=== PATIENT | female | born 2000 | race Caucasian/White ===

== ENCOUNTER 2022-05-04 16:09 | Emergency (ER) | payer OTHER, SELFPAY ==
--- NOTE | 2022-05-04 16:35 | PC.NURSE ---
assessed pt in triage. vss, no room availability at this time. pt aware and will bring pt to room as soon one is open.
[2022-05-04 17:21] VITALS: BP 130/65; PULSE 124; RESP 20; TEMP 36.9; O2SAT 98; BMI 32.5
--- NOTE | 2022-05-04 17:26 | [facility].EDGENADL ---
Discharge Plan Disposition Patient Disposition: Home, Self-Care Condition: Good Prescriptions Prescriptions: New ondansetron HCl 4 mg tablet 4 mg PO Q6H PRN (Reason: nausea and vomiting) Qty: 10 0RF Referrals Follow up/Referrals: Provider,Referral, [Primary Care Provider] - See instructions Activity Restrictions/Add. Instructions Additional Instructions/Restrictions: Follow-up with your primary care provider within 72 hours to establish care for this visit to the emergency department and ensure improvement of symptoms. If you do not get any better, are unable to tolerate food or drink by mouth, continue to get worse, or any other concerning signs, return to the ED for further evaluation. Clinical Impressions Clinical Impression: Gastroenteritis Instructions Patient Instructions: DI for Diarrhea and Traveler's Diarrhea -- Adult, DI for Diarrhea and Traveler's Diarrhea -- Child, DI for Nausea -- Adult, DI for Nausea -- Child Discharge ED Provider: Toy Jason General Adult HPI General Chief complaint: Nausea/Vomiting/Diarrhea Stated complaint: vomiting, diarrhea, STILES, adm pain Time Seen by Provider: 05/04/22 17:16 Mode of Arrival: Ambulatory Source of Information: Patient Limitations: No Limitations Description of Symptoms (Recalled from ER Triage Doc. by RN): c/o v/d starting around 3:40am, t/o the day STILES, middle abdomen pain and blood in her vomit that pt states looks like a watered down blood History of Present Illness HPI narrative: This is an otherwise healthy 22-year-old female presenting with vomiting and diarrhea. Patient states that she has been vomiting persistently without ability to tolerate any p.o. intake for approximately 12 hours. Vomiting has more recently been associated with dark red flecks of blood. Denies bilious vomiting. She has also had diarrhea that is nonbloody and watery. She has associated epigastric abdominal pain that is 8 out of 10 at worst, does not radiate, not associated with dysuria, hematuria. Currently on menstrual period. Denies chest pain, shortness of breath, back pain, neurologic deficits, or any other concerning history Related Data Previous Rx's Medication Instructions Recorded ondansetron HCl 4 mg tablet 4 mg PO Q6H PRN nausea and 05/04/22 vomiting #10 tabs Allergies Allergy/AdvReac Type Severity Reaction Status Date / Time No Known Allergies Allergy Verified 05/04/22 17:42 PFSH [facility] Disclaimer: The information contained in this section may have been updated after the patient was seen, as this information can be updated by other users. Social History Smoking Status: Current every day smoker alcohol intake: never current occupational status: employed Travel in the last 8 weeks: None ROS Obtained: Yes All systems reviewed & no additional complaints except as documented Physical Exam General General appearance: alert and in no apparent distress Head Head exam: atraumatic, normocephalic and normal inspection Eye Eye exam: Present normal appearance, PERRL and EOMI ENT ENT exam: Present normal exam, normal oropharynx, mucous membranes moist, TM's normal bilaterally and normal external ear exam Neck Neck exam: Present normal inspection, full ROM and trachea midline; Absent meningismus or lymphadenopathy Chest Chest inspection: Present normal inspection and symmetric chest wall rise; Absent tenderness Respiratory Respiratory exam: Present normal lung sounds bilaterally; Absent respiratory distress Cardiovascular Cardiovascular exam: Present regular rate and normal rhythm; Absent JVD Abdominal Exam Abdominal exam: Present soft, tenderness and normal bowel sounds; Absent distention, guarding, rebound, rigidity, Peter's sign, Rovsing's sign or tenderness at McBurney's Point Abdominal tenderness: Present epigastrium Extremities Exam Extremities exam: Present normal inspection, full ROM and normal capillary refill; Absent calf tenderness
--- NOTE | 2022-05-04 17:27 | XR_ITS ---
PROCEDURE INFORMATION: Exam: XR Chest Exam date and time: 05/04/2022 7:03 PM Age: 22 years old Clinical indication: Other: Hematemesis, rule out eso perf. TECHNIQUE: Imaging protocol: Radiologic exam of the chest. Views: 1 view. Portable AP upright exam 7:06 p.m. COMPARISON: No relevant prior studies available. FINDINGS: Lungs: Minimal subsegmental atelectasis or minimal airspace disease at the left lung base. Right lung is unremarkable. Pulmonary vessels do not appear congested. Pleural spaces: Unremarkable. No significant pleural effusion. No pneumothorax. Heart/Mediastinum: The cardiac silhouette is normal. No evidence of pneumomediastinum to confirm an esophageal perforation. Bones/joints: Mild thoracic dextroscoliosis.There is no evidence of acute fracture. IMPRESSION: 1. There are no findings of pneumomediastinum, to suggest esophageal perforation. 2. Minimal subsegmental atelectasis or airspace disease/pneumonia at the left lung base. No definite consolidation. 3. Additional nonemergency and chronic findings as above.
[2022-05-04 17:46] LABS: Coronavirus 19, PCR Not Detected (NotDetected)
[2022-05-04 17:47] LABS: Influenza A, PCR Not Detected (NotDetected); Influenza B, PCR Not Detected (NotDetected)
[2022-05-04 17:58] LABS: Basophils # 0.1 K/mm3 (0-0.2); Basophils % 0.3 % (0.1-2.0); Eosinophils # 0.1 K/mm3 (0.0-0.4); Eosinophils % 0.6 % (0.1-12.0); Hematocrit 45.6 % (37.0-47.0); Hemoglobin 14.9 g/dL (12.2-16.2); Lymphocytes # 0.3 K/mm3 (0.7-4.5); Lymphocytes % 1.7 % (10-50); Mean Corpuscular HGB Conc 32.7 g/dL (31.8-35.4); Mean Corpuscular Hemoglobin 28.7 pg (27.0-31.2); Mean Corpuscular Volume 87.8 fl (81-99); Mean Platelet Volume 7.9 fl (7.4-10.4); Monocytes # 0.3 K/mm3 (0.1-1.0); Neutrophils # 15.1 K/mm3 (1.8-7.8); Neutrophils % 95.4 % (37.0-80.0); Platelet Count 528 K/mm3 (142-424); Red Blood Count 5.19 M/mm3 (4.20-5.40); White Blood Count 15.8 K/mm3 (4.8-10.8)
[2022-05-04 18:00] LABS: MANUAL DIFFERENTIAL MANUAL DIFFERENTIAL (MANUAL DIFF)
[2022-05-04 18:26] LABS: Lymphocytes % 6 % (10-50); Monocytes % 1 % (2-9); Neutrophils % 93 % (42-76); RBC Morphology Normal; Total Cells Counted 100
[2022-05-04 18:27] LABS: Platelet Estimate Moderate Increase
[2022-05-04 18:28] LABS: Alanine Aminotransferase 35 U/L (12-78); Albumin Level 5.3 g/dl (3.5-5.0); Albumin/Globulin Ratio 1.2 (1.1-1.8); Alkaline Phosphatase 106 U/L (38-126); Anion Gap 21.4 mEq/L (5-15); Aspartate Amino Transferase 55 U/L (14-36); Bilirubin,Total 1.5 mg/dl (0.2-1.3); Blood Urea Nitrogen 21 mg/dl (7-17); Calcium 9.8 mg/dl (8.4-10.2); Carbon Dioxide 21 mmol/L (22.0-30.0); Chloride 103 mmol/L (98-107); Creatinine Clearance Estimated 197 mL/min (50-200); Estimated Glomerular Filt Rate 123 ml/min (>60); GFR (African American) 149 ML/MIN (>60); Globulin 4.3 g/dL (1.3-3.2); Glucose 127 mg/dl (74-100); Lipase 49 U/L (23-300); Potassium 5.4 mmoL/L (3.5-5.1); Sodium 140 mmol/L (136-145); Total Protein,Serum 9.6 g/dl (6.3-8.2)
[2022-05-04 18:30] VITALS: BP 102/64; PULSE 104; RESP 18; O2SAT 98
[2022-05-04 18:50] LABS: HCG,Quantitative < 2 mIU/ml (0-5.42)
[2022-05-04 19:33] LABS: Microscopic, Urine URINE MICROSCOPIC (MICROSCOPIC)
[2022-05-04 20:11] VITALS: BP 118/79; PULSE 119; RESP 18; TEMP 36.9; O2SAT 98
[2022-05-04 20:17] LABS: Appearance,Urine CLOUDY (Clear); Bilirubin,Urine 1+ (Negative); Blood, Urine 3+ (Negative); Color,Urine ORANGE (Yellow); Glucose,Urine (UA) Negative (Negative); Ketones,Urine Negative (Negative); Leukocyte Esterase,Urine Negative (Negative); Nitrate,Urine POSITIVE (Negative); Protein,Urine 1+ (Negative); Specific Gravity, Urine >= 1.030 (1.005-1.030); Urobilinogen,Urine 0.2 EU/dl (0.2)
[2022-05-04 20:52] LABS: Bacteria,Urine Trace /lpf; RBC,Urine TNTC #/hpf (0-3); WBC,Urine Occasional #/hpf (0-3)
== END 2022-05-04 20:15 | disposition home or self-care (01) ==
PROVIDERS: Emergency Provider Emergency Medicine
DX: R10.13 Epigastric pain (principal); R11.2 Nausea with vomiting, unspecified; R19.7 Diarrhea, unspecified; E87.5 Hyperkalemia; R51.9 Headache, unspecified; D72.829 Elevated white blood cell count, unspecified; Z20.822 Contact with and (suspected) exposure to COVID-19; F17.200 Nicotine dependence, unspecified, uncomplicated; Z79.899 Other long term (current) drug therapy
CPT/HCPCS: 71045; 80053; 81001; 83690; 84702; 85007; 85025; 96361; 96374; 96375; 99284; C9803; J2405; U0003; U0005

== ENCOUNTER → 2023-02-13 10:41 | Outpatient (CLI) | payer OTHER, SELFPAY | PROVIDERS: PCP Student in an Organized Health Care Education/Training Program; Visit Provider Student in an Organized Health Care Education/Training Program | DX: J02.9 Acute pharyngitis, unspecified (principal); J39.8 Other specified diseases of upper respiratory tract | CPT/HCPCS: 87635 ==